=== PATIENT | male | born 1985 | race Caucasian/White ===

== ENCOUNTER 2022-03-27 19:34 | Emergency (ER) | payer BC ==
[2022-03-27] MEDS ORDERED: Lactated Ringers 1,000 ML IV STA ×2 (21:52→23:13)
[2022-03-27] MEDS ORDERED: Ondansetron 4 MG/2 ML SDV IVPUSH ONE (22:24)
[2022-03-27] MEDS ORDERED: Morphine 4 MG/ML VIAL IVPUSH ONE (22:24)
[2022-03-27 22:35] LABS: BLOOD UREA NITROGEN,BUN 11 mg/dL (7.0-18.0); CHLORIDE,CL 99 mmol/L (98-107); GLUCOSE RANDOM 100 mg/dL (74-106); POTASSIUM,K 3.7 mmol/L (3.5-5.1); SODIUM,NA 136 mmol/L (136-148)
[2022-03-27 22:37] LABS: ESTIMATED GFR > 60.0 ml/min
[2022-03-27] MEDS ORDERED: Iopamidol 755 MG/ML 500 ML Multipack Bottle IVPUSH ONE (23:04)
[2022-03-27] MEDS ORDERED: Piperacillin/Tazobactam 4.5 GM in Sodium Chloride 0.9% 100 ML IV ONE (23:12)
== END 2022-03-28 01:26 | disposition left against medical advice (07) ==
LOC: MW.ED 19:34 → EDSEX 19:34 → MW.ED 03-28 01:26
DX: K57.20 Diverticulitis of large intestine with perforation and abscess without bleeding (principal); Z20.822 Contact with and (suspected) exposure to COVID-19
CPT/HCPCS: 36415; 74177; 80053; 83605; 85025; 85610; 87040; 87635; 96365; 96375; 99285; J2270; J2405; J2543; J7120; Q9967; U0002